=== PATIENT | male | born 1970 | race Two or more races ===

== ENCOUNTER 2024-02-05 17:32 | Emergency (ER) | payer MEDICAID, OTHER ==
[~2024-02-05] VITALS: Ht 172.7 cm; Wt 93.0 kg
[2024-02-05 18:58] VITALS: PULSE 73; RESP 20; O2SAT 98
[2024-02-05 19:24] VITALS: PULSE 71; RESP 19; TEMP 98.4; O2SAT 98
[2024-02-05] MEDS: HYDROmorphone HCL 2 MG/ML VL/or syr IV ONE (20:12)
[2024-02-05] MEDS ORDERED: METH-1181 PO (20:13)
[2024-02-05] MEDS: ONDANSETRON HCL 4 MG/2 ML VIAL IV ONE (20:13)
[2024-02-05] MEDS: KETOROLAC TROMETH 30 MG/ML 1ML VIAL IV ONE (20:15)
[2024-02-05 20:42] VITALS: BP 140/96; PULSE 88; RESP 14
[2024-02-05] MEDS: METHOCARBAMOL 500 MG TAB PO ONE (21:07)
== END 2024-02-05 21:56 | disposition home or self-care (01) ==
LOC: EDBD 17:32 → ER 17:32
DX: S16.1XXA Strain of muscle, fascia and tendon at neck level, initial encounter (principal); S39.012A Strain of muscle, fascia and tendon of lower back, initial encounter; S20.219A Contusion of unspecified front wall of thorax, initial encounter; S30.1XXA Contusion of abdominal wall, initial encounter; S06.89AA Other specified intracranial injury with loss of consciousness status unknown, initial encounter; Z79.899 Other long term (current) drug therapy; V59.49XA Driver of pick-up truck or van injured in collision with other motor vehicles in traffic accident, initial encounter; Y93.I9 Activity, other involving external motion; Y92.89 Other specified places as the place of occurrence of the external cause; Y99.8 Other external cause status
CPT/HCPCS: 70450; 71250; 72125; 72131; 74176; 96374; 96375; 99285; J1171; J2405